=== PATIENT | male | born 1955 | race Caucasian/White ===

== ENCOUNTER 2021-12-01 11:08 | Emergency (ER) | payer OTHER ==
[~2021-12-01] VITALS: Ht 170.2 cm; Wt 67.1 kg
[2021-12-01 11:15] VITALS: BP 138/72
--- NOTE | 2021-12-01 11:21 | NUR ---
PT AMB TO BED 6. HANDED ON URINE CUP.
--- NOTE | 2021-12-01 11:30 | NUR ---
sin in pt room assessing pt at this time
--- NOTE | 2021-12-01 11:34 | NUR ---
66 y/o male bib self, c/o left sided groin pain that started this morning and worsened as day progressed. describes as sharp pain in suprapubic area and states he has has tenderness and swelling in area. pt states he was lifting this week and thinks that it may have started the pain, worsens with sitting and moving. denies nausea, vomiting, diarrhea. skin is pink/warm/dry. a&o x4 with even and steady gait. lungs clear bl, heart rate even and regular. pt denies dysuria, hematuria, urinary frequency or retention, or anyone sick in the household with the same symptoms. pt denies any fever, cp, sob, or cough at this time. pt states pain is 4/10 at this time. vss. patient positioned for comfort. hob elevated. bed down. dia made aware of pt. pmh: skin ca nka med: tylenol 2 po this morning (relief)
[2021-12-01] MEDS: IBUPROFEN 600 MG TAB PO ONE (11:44)
--- NOTE | 2021-12-01 11:44 | NUR ---
Ultrasound at bedside.
--- NOTE | 2021-12-01 12:48 | NUR ---
pt taken to ct via wheelchair
[2021-12-01] MEDS ORDERED: PRED20TA5 PO (13:39)
[2021-12-01] MEDS ORDERED: ACET-2619 PO (13:42)
[2021-12-01 14:14] VITALS: BP 138/72
--- NOTE | 2021-12-01 14:15 | NUR ---
Patient discharged with v/s stable. Written and verbal after care instructions given and explained. Patient alert, oriented and verbalized understanding of instructions. Ambulatory with family to car. All questions addressed prior to discharge. ID band removed. Patient advised to follow up with PMD. Rx of tylenol (sent) given. Patient educated on indication of medication including possible reaction and side effects. Opportunity to ask questions provided and answered.
== END 2021-12-01 14:14 | disposition home or self-care (01) ==
LOC: MED 11:08
DX: K40.20 Bilateral inguinal hernia, without obstruction or gangrene, not specified as recurrent (principal); K42.9 Umbilical hernia without obstruction or gangrene; Z79.899 Other long term (current) drug therapy
CPT/HCPCS: 72192; 76870; 81002; 99284; Q0092